=== PATIENT | female | born 1995 | race Asian ===

== ENCOUNTER 2019-01-28 19:56 | Emergency (ER) | payer OTHER ==
[~2019-01-28] VITALS: Ht 149.9 cm; Wt 60.5 kg
[2019-01-28] MEDS ORDERED: TRI-1TAB PO (20:07)
[2019-01-28] MEDS ORDERED: BIOT1CAP2 PO (20:07)
[2019-01-28 21:52] LABS: HEMATOCRIT 41.6 % (36.0-47.0); HEMOGLOBIN 13.9 g/dl (12.0-15.5); MEAN CORPUSCULAR HEMOGLOBIN 31.7 pg (27.0-33.0); MEAN CORPUSCULAR HGB CONC 33.4 g/dl (32.0-36.5); MEAN CORPUSCULAR VOLUME 94.8 fl (80.0-96.0); PLATELET COUNT, AUTOMATED 290 10^3/uL (150-450); RED BLOOD COUNT 4.39 10^6/uL (4.00-5.40); WHITE BLOOD COUNT 9.6 10^3/uL (4.0-10.0)
[2019-01-28 22:17] LABS: ALBUMIN 3.9 GM/DL (3.2-5.2); ALT/SGPT 70 U/L (12-78); BILIRUBIN,TOTAL 0.3 MG/DL (0.2-1.0); BLOOD UREA NITROGEN 10 MG/DL (7-18); CALCIUM LEVEL 9.1 MG/DL (8.5-10.1); CARBON DIOXIDE LEVEL 23 MEQ/L (21-32); CHLORIDE LEVEL 107 MEQ/L (98-107); CREATININE FOR GFR 0.69 MG/DL (0.55-1.30); GLOMERULAR FILTRATION RATE > 60.0 (>60); GLUCOSE, FASTING 132 MG/DL (70-100); POTASSIUM SERUM 4.5 MEQ/L (3.5-5.1); SODIUM LEVEL 140 MEQ/L (136-145); TOTAL PROTEIN 7.8 GM/DL (6.4-8.2)
[2019-01-28 22:28] LABS: HCG, SERUM QUALITATIVE NEGATIVE (NEGATIVE)
[2019-01-28] MEDS ORDERED: IBUPROFEN 600 MG TAB PO ONE (23:30)
--- NOTE | 2019-01-29 00:19 | REPVR ---
EXAM: US Pelvis Complete, Transabdominal EXAM DATE/TIME: 01/28/2019 11:36 PM CLINICAL HISTORY: 23 years old, female; Pelvic pain; Additional info: Right pelvic pain, history of cyst TECHNIQUE: Imaging protocol: Real-time transabdominal pelvic ultrasound with image documentation. Complete exam. COMPARISON: No relevant prior studies available. FINDINGS: Uterus/cervix: 7.9 x 3.4 x 4.5 cm. Normal endometrial thickness, measuring approximately 5 mm. Right ovary: 2.5 x 1.7 x 2.4 cm. No mass. Normal blood flow. Left ovary: 2.6 x 1.5 x 2.2 cm. No mass. Normal blood flow. Free fluid: None. Bladder: Normal. IMPRESSION: No acute sonographic findings. Electronically signed by: Remigio Reed On 01/29/2019 00:18:46 AM
[2019-01-29 00:44] VITALS: BP 118/74
== END 2019-01-29 00:46 | disposition home or self-care (01) ==
LOC: M ED 19:56
DX: R10.2 Pelvic and perineal pain (principal); R19.7 Diarrhea, unspecified; R11.0 Nausea; K21.9 Gastro-esophageal reflux disease without esophagitis; Z79.3 Long term (current) use of hormonal contraceptives

== ENCOUNTER 2019-12-22 01:58 | Emergency (ER) | payer OTHER ==
[~2019-12-22] VITALS: Ht 149.9 cm; Wt 61.4 kg
[~2019-12-22 01:58] MED LIST: BIOT1CAP2 PO; TRI-1TAB PO
[2019-12-22] MEDS ORDERED: ALBU8.5H INH (02:23)
[2019-12-22] MEDS ORDERED: NS 1,000 ML IV ONE (02:30)
[2019-12-22] MEDS ORDERED: MORPHINE 4 MG/ML 1ML VIAL/SYRINGE (J2270) IV PRN (02:30)
[2019-12-22] MEDS ORDERED: ISOVUE-370 76% 100ML VIAL As Ordered ONE (02:34)
[2019-12-22 03:07] LABS: HCG, SERUM QUALITATIVE NEGATIVE (NEGATIVE)
[2019-12-22 03:08] LABS: BASO # 0.1 10^3/uL (0.0-0.2); BASO % 0.5 % (0.0-1.0); EOS # 0.3 10^3/uL (0.0-0.5); EOS % 3.4 % (0.0-3.0); HEMOGLOBIN 14.3 g/dl (12.0-15.5); LYMPH # 3.5 10^3/uL (1.5-5.0); LYMPH % 36.2 % (24.0-44.0); MEAN CORPUSCULAR HEMOGLOBIN 30.6 pg (27.0-33.0); MEAN CORPUSCULAR HGB CONC 33.3 g/dl (32.0-36.5); MEAN CORPUSCULAR VOLUME 92.1 fl (80.0-96.0); MONO # 0.7 10^3/uL (0.0-0.8); MONO % 6.7 % (0.0-5.0); NEUTROPHILS # 5.2 10^3/uL (1.5-8.5); NEUTROPHILS % 52.7 % (36.0-66.0); PLATELET COUNT, AUTOMATED 311 10^3/uL (150-450); RED BLOOD COUNT 4.67 10^6/uL (4.00-5.40); WHITE BLOOD COUNT 9.8 10^3/uL (4.0-10.0)
--- NOTE | 2019-12-22 03:42 | REPVR ---
PROCEDURE INFORMATION: Exam: CT Head Without Contrast Exam date and time: 12/22/2019 2:28 AM Age: 24 years old Clinical indication: Injury or trauma; Fall; Initial encounter; Concussion / head injury; Injury details: Fell out of tub TECHNIQUE: Imaging protocol: Computed tomography of the head without contrast. Radiation optimization: All CT scans at this facility use at least one of these dose optimization techniques: automated exposure control; mA and/or kV adjustment per patient size (includes targeted exams where dose is matched to clinical indication); or iterative reconstruction. COMPARISON: No relevant prior studies available. FINDINGS: Brain: Normal. No hemorrhage. Unremarkable white matter. No mass effect. Ventricles: Normal. No ventriculomegaly. Bones/joints: Unremarkable. No acute fracture. Sinuses: Visualized sinuses are unremarkable. No fluid levels. Mastoid air cells: Visualized mastoid air cells are well aerated. Soft tissues: Unremarkable. IMPRESSION: No acute intracranial abnormality. Electronically signed by: Huan Bey On 12/22/2019 03:42:41 AM
--- NOTE | 2019-12-22 03:43 | REPVR ---
PROCEDURE INFORMATION: Exam: CT Thoracic Spine Without Contrast Exam date and time: 12/22/2019 2:28 AM Age: 24 years old Clinical indication: Pain in thoracic spine; Without myelpathy or radiculopathy; Patient HX: Fell out of tub; Additional info: Trauma TECHNIQUE: Imaging protocol: Computed tomography images of the thoracic spine without contrast. Radiation optimization: All CT scans at this facility use at least one of these dose optimization techniques: automated exposure control; mA and/or kV adjustment per patient size (includes targeted exams where dose is matched to clinical indication); or iterative reconstruction. COMPARISON: No relevant prior studies available. FINDINGS: Vertebrae: No acute fracture. Normal alignment. Discs/Spinal canal/Neural foramina: No acute findings. Soft tissues: Unremarkable. Liver: Diffusely hypodense liver consistent with hepatic steatosis. IMPRESSION: No acute findings. Electronically signed by: Frankie Arredondo On 12/22/2019 03:43:22 AM
--- NOTE | 2019-12-22 03:45 | REPVR ---
PROCEDURE INFORMATION: Exam: CT Cervical Spine Without Contrast Exam date and time: 12/22/2019 2:28 AM Age: 24 years old Clinical indication: Neck pain; Patient HX: Fell out of tub; Additional info: Trauma TECHNIQUE: Imaging protocol: Computed tomography images of the cervical spine without contrast. Radiation optimization: All CT scans at this facility use at least one of these dose optimization techniques: automated exposure control; mA and/or kV adjustment per patient size (includes targeted exams where dose is matched to clinical indication); or iterative reconstruction. COMPARISON: No relevant prior studies available. FINDINGS: Vertebrae: Nonspecific straightening. Vertebral body height and AP alignment is preserved. No acute cervical spine fracture. Discs/Spinal canal/Neural foramina: No definite significant central canal stenosis. Soft tissues: Unremarkable. Lungs: Lung apices are normal. Pleural space: No visible pneumothorax. IMPRESSION: No acute osseous abnormality. Electronically signed by: Huan Bey On 12/22/2019 03:45:27 AM
--- NOTE | 2019-12-22 03:46 | REPVR ---
PROCEDURE INFORMATION: Exam: CT Chest With Contrast Exam date and time: 12/22/2019 2:28 AM Age: 24 years old Clinical indication: Chest pain; Type not specified; Patient HX: Fell out of tub; Additional info: Trauma TECHNIQUE: Imaging protocol: Computed tomography of the chest with intravenous contrast. Radiation optimization: All CT scans at this facility use at least one of these dose optimization techniques: automated exposure control; mA and/or kV adjustment per patient size (includes targeted exams where dose is matched to clinical indication); or iterative reconstruction. Contrast material: ISO; Contrast volume: 100 ml; Contrast route: AC; COMPARISON: No relevant prior studies available. FINDINGS: Lungs: No consolidation. No mass. Pleural space: No pneumothorax. No pleural effusion. Heart: No cardiomegaly. No pericardial effusion. Aorta: No thoracic aortic aneurysm. Lymph nodes: Unremarkable. No enlarged lymph nodes. Liver: Diffusely hypodense liver consistent with hepatic steatosis. Bones/joints: Unremarkable. No acute fracture. Soft tissues: Unremarkable. IMPRESSION: No acute findings. Electronically signed by: Frankie Arredondo On 12/22/2019 03:46:54 AM
--- NOTE | 2019-12-22 04:02 | REP ---
Clinical: Trauma. Technique: AP, lateral, bilateral oblique and sunrise views right knee . Findings: The osseous structures and joint spaces are intact and normal. There is no evidence for acute fracture or dislocation. No joint effusion is appreciated. Surrounding soft tissues are unremarkable. No subcutaneous emphysema or radiodense foreign body. Impression: No acute fracture or dislocation. Electronically Signed by Rios Hernandez MD 12/22/2019 03:54 A
--- NOTE | 2019-12-22 04:03 | REPVR ---
PROCEDURE INFORMATION: Exam: CT Lumbar Spine Without Contrast Exam date and time: 12/22/2019 2:28 AM Age: 24 years old Clinical indication: Low back pain; Patient HX: Fell out of tub; Additional info: Trauma TECHNIQUE: Imaging protocol: Computed tomography images of the lumbar spine without contrast. Radiation optimization: All CT scans at this facility use at least one of these dose optimization techniques: automated exposure control; mA and/or kV adjustment per patient size (includes targeted exams where dose is matched to clinical indication); or iterative reconstruction. COMPARISON: No relevant prior studies available. FINDINGS: Vertebrae: No acute fracture. Vertebrae are normally aligned. Normal vertebral body heights. Mild lumbar levoscoliosis. Discs/Spinal canal/Neural foramina: No acute findings. No severe stenoses. Soft tissues: Unremarkable. IMPRESSION: No acute findings. Electronically signed by: Frankie Arredondo On 12/22/2019 04:02:46 AM
--- NOTE | 2019-12-22 04:08 | REPVR ---
PROCEDURE INFORMATION: Exam: CT Abdomen And Pelvis With Contrast Exam date and time: 12/22/2019 2:28 AM Age: 24 years old Clinical indication: Abdominal pain; Generalized; Patient HX: Fell out of tub; Additional info: Trauma TECHNIQUE: Imaging protocol: Computed tomography of the abdomen and pelvis with intravenous contrast. Radiation optimization: All CT scans at this facility use at least one of these dose optimization techniques: automated exposure control; mA and/or kV adjustment per patient size (includes targeted exams where dose is matched to clinical indication); or iterative reconstruction. Contrast material: ISO; Contrast volume: 100 ml; Contrast route: AC; COMPARISON: US PELVIC NON-OB COMPLETE 01/28/2019 11:33 PM FINDINGS: Liver: Hepatic steatosis. Hepatomegaly measures 21 centimetres. Gallbladder and bile ducts: Normal. No calcified stones. No ductal dilation. Pancreas: Normal. No ductal dilation. Spleen: Normal. No splenomegaly. Adrenals: Normal. No mass. Kidneys and ureters: Indeterminate right renal hypodensity measures 9 mm. No acute renal injury. Stomach and bowel: Unremarkable. No obstruction. No mucosal thickening. Appendix: No evidence of appendicitis. Intraperitoneal space: Trace free fluid within the pelvis. Vasculature: Unremarkable. No abdominal aortic aneurysm. Lymph nodes: Unremarkable. No enlarged lymph nodes. Bladder: Unremarkable as visualized. Reproductive: Unremarkable as visualized. Bones/joints: Unremarkable. No acute fracture. Soft tissues: Small fat containing umbilical hernia. IMPRESSION: 1. No acute abnormality. 2. Indeterminate right renal hypodensity measuring 9 mm. Ultrasound may be considered. COMMENTS: Consistent with the [employer]'s Incidental Findings Committee white paper (J Am Kristopher Radiol 2018): Any incidental renal lesion less than 1.0 cm or classified as too small to characterize, or any incidental cystic renal lesion characterized as simple-appearing, is likely benign. No follow-up imaging is recommended for these lesions per consensus recommendations based on imaging criteria. Electronically signed by: Huan Bey On 12/22/2019 04:08:14 AM
[2019-12-22 04:19] LABS: BLOOD UREA NITROGEN 11 MG/DL (7-18); CALCIUM LEVEL 8.6 MG/DL (8.5-10.1); CARBON DIOXIDE LEVEL 25 MEQ/L (21-32); CHLORIDE LEVEL 106 MEQ/L (98-107); CREATININE FOR GFR 0.72 MG/DL (0.55-1.30); GLOMERULAR FILTRATION RATE > 60.0 (>60); GLUCOSE, FASTING 125 MG/DL (70-100); POTASSIUM SERUM 4.3 MEQ/L (3.5-5.1); SODIUM LEVEL 141 MEQ/L (136-145)
--- NOTE | 2019-12-22 04:32 | REP ---
Clinical: Left ankle trauma . Technique: AP, lateral, bilateral oblique views left ankle . Findings: No acute fracture or dislocation. Skeletal structures and joint spaces are intact and normal. Ankle mortise appears stable. No subcutaneous emphysema or radiodense foreign body. Impression: Normal left ankle radiograph series. No acute fracture or dislocation. Electronically Signed by Rios Hernandez MD 12/22/2019 04:23 A
[2019-12-22 04:46] VITALS: BP 136/80
--- NOTE | 2019-12-23 13:37 | ED PDOC ---
Post-Departure Follow-Up ft [facility] faxed formal report of ct abd/p for fu Hira Marcial MD Dec 23, 2019 13:37
== END 2019-12-22 05:07 | disposition home or self-care (01) ==
LOC: M ED 01:58 → EDBD 01:58 → M ED 05:07
DX: S93.402A Sprain of unspecified ligament of left ankle, initial encounter (principal); S30.0XXA Contusion of lower back and pelvis, initial encounter; M25.561 Pain in right knee; W01.198A Fall on same level from slipping, tripping and stumbling with subsequent striking against other object, initial encounter; Y92.89 Other specified places as the place of occurrence of the external cause; Y93.89 Activity, other specified; Y99.1 Military activity; N28.89 Other specified disorders of kidney and ureter; J45.909 Unspecified asthma, uncomplicated; Z79.3 Long term (current) use of hormonal contraceptives
CPT/HCPCS: 36415; 70450; 71260; 72125; 72128; 72131; 73564; 73610; 74177; 80047; 80048; 84703; 85025; 93041; 94760; 96361; 96374; 99285; J2270; Q9967